=== PATIENT | female | born 1975 | race Two or more races ===

== ENCOUNTER 2024-10-04 21:16 | Emergency (ER) | payer OTHER ==
[~2024-10-04] VITALS: Ht 162.6 cm; Wt 81.6 kg
[2024-10-04] MEDS ORDERED: BUPROPION XL450 MG PO (21:30)
[2024-10-04] MEDS ORDERED: CLONAZEPAM0.5 MG PO (21:30)
[2024-10-04] MEDS ORDERED: CLINDAMYCIN PHOSPHATE 150 MG/ML (900mg) IV STA (21:55)
[2024-10-04] MEDS ORDERED: CLINDAMYCIN PHOSPHATE 150 MG/ML (900mg) ONE (21:58)
[2024-10-04 22:18] LABS: BASO % 0.1 % (0.1-1.2); EOS # 0.00 (0.04-0.54); EOS % 0.0 % (0.7-7.0); LYMPH # 0.65 (1.18-3.74); LYMPH % 5.0 % (19.3-53.1); MEAN PLATELET VOLUME 9.40 fl (9.4-12.4); MONO # 0.75 (0.24-0.82); MONO % 5.7 % (4.7-12.5); NEUT # 11.63 (1.56-6.13); RED CELL DISTRIBUTION WIDTH 12.8 % (11.6-14.4)
[2024-10-04 22:24] LABS: ERYTHROCYTE SEDIMENTATION RATE 96 mm/hr (0-20)
[2024-10-04 22:35] LABS: NEUT % 88.8 % (34.0-71.1)
[2024-10-04 22:41] LABS: BUN CREA RATIO 18.0 (7.0-25.0); CREATININE SERUM 0.84 mg/dL (0.55-1.02); GFR 72.06; GLUCOSE FASTING 123.0 mg/dL (65-100); OSMOLALITY SERUM 282.0 MOSM/KG (275-295)
[2024-10-04 22:51] LABS: BAND MAN 2.0 %; LYMPHOCYTE MAN 6.0 %; MONOCYTE MAN 5.0 %; NEUTROPHILS MAN 87.0 %
[2024-10-05] MEDS ORDERED: CLEOCIN HCL300 MG PO (02:05)
== END 2024-10-05 02:08 ==
LOC: ER 22:03
DX: T14.8XXA Other injury of unspecified body region, initial encounter (principal); Z88.0 Allergy status to penicillin